=== PATIENT | male | born 1965 | race Caucasian/White ===

== ENCOUNTER 2018-04-26 16:21 | Inpatient (IN) | payer OTHER ==
[~2018-04-26] VITALS: Ht 182.9 cm; Wt 78.0 kg
--- NOTE | 2018-04-26 16:43 | NUR ---
FLAKITOCARLIFelisa ARRIVES WITH [facility]. [facility]. THEY STATE PATIENT IS SUICDIAL AND HOMICIDAL AND HAVE ACCOMPANYING PAPERWORK WITH HOLD FOR PATIENT. HE IS REPETITIVE THAT HE IS CONTAMINATED IN HIS SKIN AND URINE, AND THAT HE HAS CONTAMINATED US ALL. HE STATES OH MY GOD, WHAT HAVE I DONE, CHRISTAL CONTAMINATED US ALL. HE HAS IMPENDING DOOM. IS HEARING VOICES THAT SAY THAT HE IS EVIL, AND HE STATES HE HAS BEEN DRINKING DIRTY WATER. HE IS NOT COMMUNICATIVE WITH DIRECT QUESTIONS. HE IS NOT COOPERATIVE. GOWNED, IN BED, VSS. PATIENT IS REPETITIVE THAT HE IS GOING TO KILL US ALL AND HE IS GOING TO BECAUSE HE IS CONTAMINATED.
--- NOTE | 2018-04-26 17:00 | NUR ---
ITEMS OF HARM REMOVED FROM ROOM. ATTEPMPTING TO GET A BREATHYLZER BUT PATIENT NOT COOPERATIVE. PATIENT WILL NOT GIVE URINE EITHER, HE BELIEVES HIS URINE IS CONTAMINATED. HE IS NOT COOPERATIVE AND A POR HISTORIAN. PATIENT IN BED AND ALL OBJECTS OF HARM REMOVED.
--- NOTE | 2018-04-26 17:09 | NUR ---
MD HERE ASSESSING PATIENT. HE IS IN BED.
--- NOTE | 2018-04-26 17:22 | NUR ---
PATIENT WAS ABLE TO GIVE URINE SAMPLE IN URINAL. IT IS DARK CONCENTRATED SHERI URINE. LABELED IN PATIENTS PRESENCE AND SENT TO LAB. PATIENT IS IN BED WITH SITTER. LAB KIM HIM. HE IS STILL REPETITIVE.
--- NOTE | 2018-04-26 17:25 | NUR ---
BREATHYLZER WAS 0.0. PATIENT BELONGINGS - TWO BAGS - LOCKED IN ER BELONGINGS LOCKER. UNABLE TO GET MEDS, PATIENT IS NOT RESPONDING APPROPRIATELY TO QUESTIONS.
--- NOTE | 2018-04-26 17:30 | NUR ---
ORDERED PATIENT A DIET TRAY.
[2018-04-26 17:38] LABS: BASOPHILS # (AUTO) 0.03 x10^3/uL (0-0.1); BASOPHILS % (AUTO) 1 % (0-1); EOSINOPHILS # (AUTO) 0.06 x10^3/uL (0-0.4); EOSINOPHILS % (AUTO) 1 % (1-7); LYMPHOCYTES # (AUTO) 0.82 x10^3/uL (1-3.4); LYMPHOCYTES % (AUTO) 14 % (22-44); MD NO; MEAN CORPUSCULAR HEMOGLOBIN 30.8 pg (27.5-34.5); MEAN CORPUSCULAR HGB CONC 34.4 g/dL (33.2-36.2); MEAN CORPUSCULAR VOLUME 89.6 fL (81-97); MEAN PLATELET VOLUME 7.7 fL (7.4-10.4); MONOCYTES # (AUTO) 0.37 x10^3/uL (0.2-0.8); MONOCYTES % (AUTO) 6 % (2-9); NEUTROPHILS % (AUTO) 79 % (42-75); PLATELET COUNT 253 x10^3/uL (130-400); RED BLOOD COUNT 4.37 x10^6/uL (4.38-5.82); RED CELL DISTRIBUTION WIDTH 14.4 % (9.4-14.8)
[2018-04-26 17:45] LABS: ALBUMIN 3.3 g/dL (3.4-5.0); ANION GAP 8 mmol/L (5-15); CALCIUM 8.4 mg/dL (8.5-10.1); CHLORIDE 111 mmol/L (98-107)
[2018-04-26 17:46] LABS: SALICYLATE LEVEL < 1.7 mg/dL (2.8-20.0)
[2018-04-26 17:48] LABS: ALANINE AMINOTRANSFERASE 42 U/L (12-78); ALKALINE PHOSPHATASE 66 U/L (45-117); BILIRUBIN,TOTAL 0.7 mg/dL (0.2-1.0); CREATININE 0.97 mg/dL (0.7-1.3); TOTAL PROTEIN 6.1 g/dL (6.4-8.2)
[2018-04-26 17:53] LABS: AMPHETAMINE SCREEN, URINE Negative (Negative); BARBITURATE SCREEN, URINE Negative (Negative); BENZODIAZEPINE SCREEN, URINE Negative (Negative); CANNABINOID SCREEN, URINE Negative (Negative); COCAINE SCREEN, URINE Negative (Negative); METHADONE SCREEN, URINE Negative (Negative); OPIATE SCREEN, URINE Negative (Negative)
[2018-04-26 17:55] LABS: ACETAMINOPHEN < 2 mcg/mL (10-30)
--- NOTE | 2018-04-26 18:06 | NUR ---
PATIENT EATING DINNER TRAY AT THIS TIME, IS QUIET IN BED.
--- NOTE | 2018-04-26 18:24 | NUR ---
PATIENT ATE A SANDWICH AND IS MUCH CALMER. HE IS ANSWERING QUESTIONS MORE APPROPRIATLY.
--- NOTE | 2018-04-26 18:41 | NUR ---
CALLED TO INITIATE TELEPSYCH CONSULT
--- NOTE | 2018-04-26 19:00 | NUR ---
REPORT RECEIVED FROM FERNIE REYNA.
--- NOTE | 2018-04-26 19:25 | NUR ---
PT RESTING AT THIS TIME. PT'S AOX4. RESPS EVEN AND UNLABORED. SITTER MONITORING FROM [facility] FOR SAFETY. ROOM REMAINS SECURE. PT STILL HAS SI/HI AT THIS TIME.
--- NOTE | 2018-04-26 20:28 | NUR ---
PT RESTING AT THIS TIME. PT PROVIDED SOME JUICE. RESPS EVEN AND UNLABORED. SITTER MONITORING FROM [facility] FOR SAFETY. ROOM REMAINS SECURE.
--- NOTE | 2018-04-26 21:12 | NUR ---
REPORT GIVEN TO TELEPSYCH.
--- NOTE | 2018-04-26 21:32 | NUR ---
TELEPSYCH IS IN ROOM NOW. PT REFUSED TO TALK TO TELEPSYCH AT THIS TIME.
--- NOTE | 2018-04-26 22:04 | NUR ---
PT PROVIDED SOME CRACKERS AND MILK AT THIS TIME.
[2018-04-26] MEDS ORDERED: PLEASE ENTER ALLERGIES MC SCH (23:00)
[2018-04-26] MEDS ORDERED: OLANZAPINE 5 MG TABLET PO SCH (23:00)
[2018-04-26] MEDS ORDERED: POTASSIUM CHLORIDE 20 MEQ TAB.ER.PRT PO ONE (23:00)
[2018-04-26] MEDS ORDERED: OLANZAPINE 5 MG TABLET ONE (23:29)
[2018-04-26] MEDS ORDERED: POTASSIUM CHLORIDE 20 MEQ TAB.ER.PRT ONE (23:29)
--- NOTE | 2018-04-26 23:39 | NUR ---
PT MEDICATED PER EMAR. PT TOLERATED WELL. RESPS EVEN AND UNLABORED.
[2018-04-26 23:56] LABS: FREE T4 (FREE THYROXINE) 1.25 ng/dL (0.76-1.46); THYROID STIMULATING HORMONE 1.64 mIU/L (0.358-3.740)
[2018-04-27 00:26] LABS: MICROSCOPIC NOT IND
--- NOTE | 2018-04-27 01:24 | NUR ---
PT SLEEPING IN [facility]. RESPS EVEN AND UNLABORED. SITTER MONITORING FROM [facility] FOR SAFETY. ROOM REMAINS SECURE.
--- NOTE | 2018-04-27 02:31 | NUR ---
[facility] STATES THAT THEY CANT TAKE PT HE IS UNABLE TO VERIFY THAT HE CAN SELF PAY
--- NOTE | 2018-04-27 04:05 | NUR ---
PT SLEEPING IN [facility]. RESPS EVEN AND UNLABORED. SITTER MONITORING FROM [facility] FOR SAFETY. ROOM REMAINS SECURE.
[2018-04-27] MEDS ORDERED: OLANZAPINE 5 MG TABLET PO PRN (04:30)
--- NOTE | 2018-04-27 05:16 | NUR ---
PT SLEEPING IN [facility]. RESPS EVEN AND UNLABORED. SITTER MONITORING FROM [facility] FOR SAFETY. ROOM REMAINS SECURE.
--- NOTE | 2018-04-27 06:34 | NUR ---
VSS WNL. PT'S AOX4. RESPS EVEN AND UNLABORED. SITTER MONITORING FROM [facility] FOR SAFETY. ROOM REMAINS SECURE.
--- NOTE | 2018-04-27 06:50 | NUR ---
REPORT GIVEN TO ANNETTE REYNA.
--- NOTE | 2018-04-27 07:10 | NUR ---
Pt sleeping on [facility]. Pt has unlabored respirations equal bilaterally. NADN. All SI precautions remain in place. No needs expressed. Sitter near doorway in direct line of sight for observaiton.
--- NOTE | 2018-04-27 09:00 | NUR ---
Pt gives verbal consent to speak to his brother Santi Moran regarding his health care. Pt's brother Santi Moran called from phone number [phone]. Santi updated on pt's healthcare and plan of care. All questions answered. Santi states, "He has had mental health issues and hospitalizations before. I don't know of any diagnosis. He was in the , then lived in [place] for years with our uncle, and no one else really ever heard from him. Then he moved up to [place] a few years ago, and he would call our mom at least once a week. No one had heard from him in a week. It is so weird that he is in there, it doesn't sound like him at all. Please let us know when he goes up the the psych unit." Santi informed to please call back regarding transfer to psych unit or additional questions. Santi states understanding.
--- NOTE | 2018-04-27 09:02 | NUR ---
Pt denies current SI or HI. Pt denies pain.
[2018-04-27] MEDS ORDERED: ATEN25TA PO ×2 (09:04→17:26)
--- NOTE | 2018-04-27 09:39 | NUR ---
Alena Benavidez, [place] casemanger and mental health coordinator, ([facility] CELL PHONE NUMBER), ([facility] main number), called regarding update on pt and his plan of care. Alena placed pt on legal hold at [facility] prior to pt arriving to [facility] ED. Alena stated she will come today to see the pt and bring information on his problem list and home medicaitons.
--- NOTE | 2018-04-27 09:43 | NUR ---
Pt resting on [facility]. HU. No needs expressed. Sitter near doorway in direct line of sight for observation.
--- NOTE | 2018-04-27 10:44 | NUR ---
Pt resting on [place]. HU. No needs expressed. Sitter near doorway in direct line of sight for observation.
[2018-04-27 14:12] LABS: BASOPHILS # (AUTO) 0.01 x10^3/uL (0-0.1); BASOPHILS % (AUTO) 0 % (0-1); EOSINOPHILS # (AUTO) 0.07 x10^3/uL (0-0.4); EOSINOPHILS % (AUTO) 2 % (1-7); LYMPHOCYTES # (AUTO) 0.88 x10^3/uL (1-3.4); LYMPHOCYTES % (AUTO) 20 % (22-44); MD NO; MEAN CORPUSCULAR HEMOGLOBIN 30.9 pg (27.5-34.5); MEAN CORPUSCULAR HGB CONC 34.1 g/dL (33.2-36.2); MEAN CORPUSCULAR VOLUME 90.7 fL (81-97); MEAN PLATELET VOLUME 7.4 fL (7.4-10.4); MONOCYTES # (AUTO) 0.29 x10^3/uL (0.2-0.8); MONOCYTES % (AUTO) 7 % (2-9); NEUTROPHILS # (AUTO) 3.24 x10^3/uL (1.8-6.8); NEUTROPHILS % (AUTO) 72 % (42-75); PLATELET COUNT 234 x10^3/uL (130-400); RED BLOOD COUNT 4.35 x10^6/uL (4.38-5.82); RED CELL DISTRIBUTION WIDTH 14.6 % (9.4-14.8)
[2018-04-27 14:18] LABS: ALBUMIN 2.9 g/dL (3.4-5.0); ANION GAP 3 mmol/L (5-15); CALCIUM 8.4 mg/dL (8.5-10.1); CHLORIDE 111 mmol/L (98-107); CREATININE 0.86 mg/dL (0.7-1.3)
--- NOTE | 2018-04-27 14:33 | NUR ---
LATE NOTE ENTRY FOR 1130: Pt resting on gurney watching TV. NADN. No needs expressed. Sitter near doorway in direct line of sight for observation.
--- NOTE | 2018-04-27 14:34 | NUR ---
LATE NOTE ENTRY FOR 1330: Pt resting on gurney watching TV. NADN. No needs expressed. Sitter near doorway in direct line of sight for observation.
--- NOTE | 2018-04-27 14:34 | NUR ---
LATE NOTE ENTRY FOR 1230: Pt recieved meal tray. Pt resting on gurney. NADN. No needs expressed. Sitter near doorway in direct line of sight for observation.
--- NOTE | 2018-04-27 14:35 | NUR ---
Pt resting on [place]. HU. No needs expressed. Sitter near doorway in direct line of sight for observation.
--- NOTE | 2018-04-27 14:35 | NUR ---
Pt's mom called and provided phone number to [phone].
--- NOTE | 2018-04-27 15:24 | NUR ---
Pt resting on gurney. HU. Pt watching TV. Sitter near doorway in direct line of sight for observation. No needs expressed.
--- NOTE | 2018-04-27 16:01 | NUR ---
Offered pt hospital bed in exchange [facility]. Pt polietly declined. Pt remains resting on [facility]. NADN. No needs expressed. Pt awake and sitting quietly in room. Sitter near doorway in direct line of sight for observation.
--- NOTE | 2018-04-27 16:16 | NUR ---
Pt's mom called. Pt gives verbal consent to speak to his mom ([phone]). 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 A few months ago he was seeing this lady over there. We didn't get to meet her yet. They broke up. He said he was fine. I have been so worried about him. None of us could get a hold of him."
[2018-04-27] MEDS ORDERED: FOLI-17 PO (17:26)
[2018-04-27] MEDS ORDERED: CHOL100012 PO (17:26)
[2018-04-27] MEDS ORDERED: SIMV40TA3 PO (17:26)
[2018-04-27] MEDS ORDERED: ATEN50TA41 PO (17:26)
[2018-04-27] MEDS ORDERED: CYAN100014 PO (17:26)
[2018-04-27] MEDS ORDERED: MULT1TAB60 PO (17:26)
[2018-04-27] MEDS ORDERED: ASPI-496 PO (17:26)
--- NOTE | 2018-04-27 17:52 | NUR ---
Pt provided dinner tray. Pt ate 100% of dinner tray. Pt resting on gurney. NADN. No needs expressed. Sitter near doorway in direct line of sight for observation.
--- NOTE | 2018-04-27 18:32 | NUR ---
Pt resting on [place]. HU. No needs expressed. Sitter near doorway in direct line of sight for observation.
--- NOTE | 2018-04-27 19:13 | NUR ---
BEDSIDE REPORT FROM ANNETTE REYNA. THIS RN TO ASSUME CARE OF PT. ROLLER DOORS IN PLACE. SITTER IN HALLWAY. NO IMMEDIATE NEEDS FROM PT. PT STILL DECLINING HOSPITAL BED AT THIS TIME.
--- NOTE | 2018-04-27 20:17 | NUR ---
ROLLER DOORS IN PLACE. SITTER IN HALLWAY. NO IMMEDIATE NEEDS FROM PT.
--- NOTE | 2018-04-27 22:17 | NUR ---
AMBULATE TO RR W/ STEADY GAIT. NO IMMEDIATE NEEDS FROM PT.
--- NOTE | 2018-04-27 22:58 | NUR ---
ROLLER DOORS IN PLACE. SITTER IN HALLWAY. NO IMMEDIATE NEEDS FROM PT.
--- NOTE | 2018-04-28 01:14 | NUR ---
ROLLER DOORS IN PLACE. SITTER IN HALLWAY. NO IMMEDIATE NEEDS FROM PT.
--- NOTE | 2018-04-28 01:43 | NUR ---
REPORT TO ISABELL REYNA.
--- NOTE | 2018-04-28 02:16 | NUR ---
REPORT FROM ALONDRA REYNA. PT SLEEPING WITH N NEEDS AT THIS TIME. SITTERIN VIEW OF PT.
--- NOTE | 2018-04-28 03:15 | NUR ---
PT AMBULATED TO BATHROOM. PT HAS NO NEEDS AT THIS TIME. VSS. SITTER IN VIEW OF PT.
--- NOTE | 2018-04-28 04:30 | NUR ---
PT SLEEPING. PT HAS NO NEEDS AT THIS TIME. PT IN NAD. EVEN RISE AND FALL OF CHEST OBSERVED. SITTER IN VIEW OF PT.
--- NOTE | 2018-04-28 05:27 | NUR ---
PT SLEEPING. PT HAS NO NEEDS AT THIS TIME. PT IN NAD. EVEN RISE AND FALL OF CHEST OBSERVED. SITTER IN VIEW OF PT.
--- NOTE | 2018-04-28 06:50 | NUR ---
REPORT TO DENY REYNA
--- NOTE | 2018-04-28 06:56 | NUR ---
PT IS RESTING IN BED WITH EYES CLOSED, RESPIRATIONS EQUAL AND NON LABORED. NAD. SITTER OUTSIDE THE ROOM.
--- NOTE | 2018-04-28 06:56 | NUR ---
REPORT FROM ISABELL REYNA.
--- NOTE | 2018-04-28 08:22 | NUR ---
PT GIVEN BREAKFAST TO EAT. PT IS SITTING UP IN BED EATING. SITTER OUTSIDE THE ROOM.
--- NOTE | 2018-04-28 09:15 | NUR ---
PT IS RESTING IN BED, EATING BREAKFAST. RESPIRATIONS EQUAL AND NON LABORED. NAD. SITTER OUTSIDE THE ROOM.
--- NOTE | 2018-04-28 10:45 | NUR ---
PT IS RESTING IN BED, RESPIRATIONS EQUAL AND NON LABORED. NAD. SITTER OUTSIDE THE ROOM.
--- NOTE | 2018-04-28 11:58 | NUR ---
PT IS RESTING IN BED WITH EYES CLOSED, RESPIRATIONS EQUAL AND NON LABORED. NAD. SITTER OUTSIDE THE ROOM.
--- NOTE | 2018-04-28 12:13 | NUR ---
PT GIVEN LUNCH TO EAT. PT IS APPRECIATIVE.
--- NOTE | 2018-04-28 12:37 | NUR ---
REPORT RECEIVED FROM AXEL BARCLAY. PT RESTING ON HOSPITAL BED, PT AWAKE AND ALERT, RESPS EVEN AND UNLABORED. ROOM SECURE. SITTER MONITORING FROM [facility] FOR SAFETY.
--- NOTE | 2018-04-28 12:55 | NUR ---
REPORT GIVEN TO 2N AXEL WONG. PT AWAITING TRANSPORT AT THIS TIME.
--- NOTE | 2018-04-28 12:58 | NUR ---
PT INFORMED THAT HE IS GOING UPSTAIRS, PT A&OX4, RESPS EVEN AND UNLABORED. PT DENIES ANY PAIN. PT HAS NO COMPLAINT AT THIS TIME.
--- NOTE | 2018-04-28 13:32 | NUR ---
PT TRANSPORTED TO ROOM 264 WITH TECH AND ALL BELONGINGS. HU AT TRANSPORT.
[2018-04-28 13:38] VITALS: BP 134/86
[2018-04-28 13:55] VITALS: BP 134/86
== END 2018-04-28 15:15 | DRG 640 ==
LOC: ED 18:15 → EDIP 04-27 00:45 → OBSVTOIN 04-27 03:57 → 2N 04-28 13:35
PROVIDERS: ADMIT Family Medicine; ATTEND Family Medicine
DX: E87.6 Hypokalemia (principal); E43 Unspecified severe protein-calorie malnutrition; F23 Brief psychotic disorder; R45.851 Suicidal ideations; E78.5 Hyperlipidemia, unspecified; I10 Essential (primary) hypertension; R45.850 Homicidal ideations; Z68.23 Body mass index [BMI] 23.0-23.9, adult
CPT/HCPCS: 36415; 80048; 80053; 80307; 80329; 81003; 82040; 84439; 84443; 85025; 99285; G0378; G0480

== ENCOUNTER 2018-04-28 14:50 | Inpatient (IN) | payer OTHER ==
[~2018-04-28] VITALS: Ht 188 cm; Wt 53.3 kg
[~2018-04-28 14:50] MED LIST: ASPI-496 PO; ATEN25TA PO; ATEN50TA41 PO; CHOL100012 PO; CYAN100014 PO; FOLI-17 PO; MULT1TAB60 PO; SIMV40TA3 PO
[2018-04-28] MEDS ORDERED: POLYETHYLENE GLYCOL 17 GM PACKET PO PRN (15:30)
[2018-04-28] MEDS ORDERED: ONDANSETRON ODT 4 MG PO PRN (15:30)
[2018-04-28] MEDS ORDERED: ACETAMINOPHEN 325 MG TABLET PO PRN (15:30)
[2018-04-28] MEDS ORDERED: DOCUSATE 100 MG CAPSULE PO PRN ×2 (15:30→16:00)
[2018-04-28] MEDS ORDERED: BISACODYL 10 MG SUPP PR PRN (15:30)
[2018-04-28 15:47] VITALS: BP 111/77
[2018-04-28] MEDS ORDERED: QUETIAPINE 25MG TABLET PO PRN (16:00)
[2018-04-28] MEDS ORDERED: ZIPRASIDONE 20MG CAPSULE PO PRN (16:00)
[2018-04-28] MEDS ORDERED: PLEASE ENTER HEIGHT AND WEIGHT MC SCH (16:00)
[2018-04-28] MEDS ORDERED: BENZTROPINE 1 MG TABLET PO PRN ×2 (16:00)
[2018-04-28] MEDS ORDERED: FLU VAC QS18-19(4YR UP)CEL/PF 0.5ML IM-VACC ONE (16:30)
[2018-04-28] MEDS ORDERED: OLANZAPINE 5 MG TABLET PO PRN (17:00)
[2018-04-28 20:06] VITALS: BP 103/71
[2018-04-28] MEDS: CHOLECALCIFEROL 1,000 UNIT TABLET PO SCH (20:46)
[2018-04-29 06:08] LABS: HCT (SEDRATE) 40.8 % (39.2-51.8)
[2018-04-29 06:38] LABS: CHOL/HDL RATIO 2.8; LDL/HDL RATIO 1.2 (0.5-3.0); T4 (THYROXINE) 6.5 mcg/dL (4.5-12.1); THYROID STIMULATING HORMONE 1.23 mIU/L (0.358-3.740)
[2018-04-29 07:14] VITALS: BP 123/80
[2018-04-29] MEDS: SENNA/DOCUSATE TABLET PO SCH ×2 (09:00→09:21)
[2018-04-29] MEDS: CHOLECALCIFEROL 1,000 UNIT TABLET PO SCH ×2 (09:20→21:14)
[2018-04-29] MEDS: FLUOXETINE 10 MG CAP PO SCH (09:20)
[2018-04-29] MEDS: CYANOCOBALAMIN 1,000 MCG TABLET PO SCH (09:21)
[2018-04-29] MEDS: MULTIVITAMIN 1 TABLET PO SCH (09:21)
[2018-04-29] MEDS: ASPIRIN 81 MG TABLET EC PO SCH (09:21)
[2018-04-29] MEDS ORDERED: FOLIC ACID 1 MG TABLET ONE (09:22)
[2018-04-29 09:26] LABS: ALBUMIN 2.8 g/dL (3.4-5.0); ANION GAP 5 mmol/L (5-15); CALCIUM 8.5 mg/dL (8.5-10.1); CHLORIDE 111 mmol/L (98-107)
[2018-04-29 09:31] LABS: ALANINE AMINOTRANSFERASE 28 U/L (12-78); ALKALINE PHOSPHATASE 56 U/L (45-117); BILIRUBIN,TOTAL 0.4 mg/dL (0.2-1.0); CREATININE 1.01 mg/dL (0.7-1.3); TOTAL PROTEIN 5.7 g/dL (6.4-8.2)
[2018-04-29 19:52] VITALS: BP 111/76
[2018-04-30 07:20] VITALS: BP 126/79
[2018-04-30] MEDS: SENNA/DOCUSATE TABLET PO SCH (08:10)
[2018-04-30] MEDS: MULTIVITAMIN 1 TABLET PO SCH (08:10)
[2018-04-30] MEDS: CYANOCOBALAMIN 1,000 MCG TABLET PO SCH (08:10)
[2018-04-30] MEDS: FOLIC ACID 1 MG TABLET PO SCH (08:10)
[2018-04-30] MEDS: FLUOXETINE 10 MG CAP PO SCH (08:10)
[2018-04-30] MEDS: ASPIRIN 81 MG TABLET EC PO SCH (08:10)
[2018-04-30] MEDS: CHOLECALCIFEROL 1,000 UNIT TABLET PO SCH ×2 (08:10→21:15)
[2018-04-30 19:53] VITALS: BP 139/91
[2018-04-30] MEDS: LORazepam 1MG TABLET PO PRN (21:14)
[2018-05-01 07:41] VITALS: BP 106/77
[2018-05-01] MEDS: CYANOCOBALAMIN 1,000 MCG TABLET PO SCH (08:35)
[2018-05-01] MEDS: FLUOXETINE 10 MG CAP PO SCH (08:35)
[2018-05-01] MEDS: ASPIRIN 81 MG TABLET EC PO SCH (08:35)
[2018-05-01] MEDS: MULTIVITAMIN 1 TABLET PO SCH (08:36)
[2018-05-01] MEDS: CHOLECALCIFEROL 1,000 UNIT TABLET PO SCH ×2 (08:36→21:04)
[2018-05-01] MEDS: SENNA/DOCUSATE TABLET PO SCH (08:36)
[2018-05-01 19:59] VITALS: BP 120/83
[2018-05-02 07:21] VITALS: BP 115/76
[2018-05-02] MEDS: CYANOCOBALAMIN 1,000 MCG TABLET PO SCH (08:54)
[2018-05-02] MEDS: ASPIRIN 81 MG TABLET EC PO SCH (08:54)
[2018-05-02] MEDS: FOLIC ACID 1 MG TABLET PO SCH (08:54)
[2018-05-02] MEDS: MULTIVITAMIN 1 TABLET PO SCH (08:54)
[2018-05-02] MEDS: SENNA/DOCUSATE TABLET PO SCH (08:54)
[2018-05-02] MEDS: CHOLECALCIFEROL 1,000 UNIT TABLET PO SCH ×2 (08:55→21:44)
[2018-05-02] MEDS: FLUOXETINE 10 MG CAP PO SCH (08:55)
[2018-05-02 19:59] VITALS: BP 113/78
[2018-05-02] MEDS: LORazepam 1MG TABLET PO PRN (21:48)
[2018-05-03 07:34] VITALS: BP 129/86
[2018-05-03] MEDS: ASPIRIN 81 MG TABLET EC PO SCH (09:10)
[2018-05-03] MEDS: MULTIVITAMIN 1 TABLET PO SCH (09:10)
[2018-05-03] MEDS: CYANOCOBALAMIN 1,000 MCG TABLET PO SCH (09:10)
[2018-05-03] MEDS: LORazepam 1MG TABLET PO PRN ×2 (09:10→20:57)
[2018-05-03] MEDS: CHOLECALCIFEROL 1,000 UNIT TABLET PO SCH ×2 (09:10→20:58)
[2018-05-03] MEDS: SENNA/DOCUSATE TABLET PO SCH (09:11)
[2018-05-03] MEDS: FLUOXETINE 10 MG CAP PO SCH (09:11)
[2018-05-03 20:00] VITALS: BP 107/74
[2018-05-04 07:56] VITALS: BP 118/78
[2018-05-04] MEDS: MULTIVITAMIN 1 TABLET PO SCH (08:08)
[2018-05-04] MEDS: FOLIC ACID 1 MG TABLET PO SCH (08:08)
[2018-05-04] MEDS: SENNA/DOCUSATE TABLET PO SCH (08:08)
[2018-05-04] MEDS: CYANOCOBALAMIN 1,000 MCG TABLET PO SCH (08:08)
[2018-05-04] MEDS: FLUOXETINE 10 MG CAP PO SCH (08:08)
[2018-05-04] MEDS: CHOLECALCIFEROL 1,000 UNIT TABLET PO SCH ×2 (08:08→20:57)
[2018-05-04] MEDS: ASPIRIN 81 MG TABLET EC PO SCH (08:08)
[2018-05-04 20:25] VITALS: BP 116/83
[2018-05-04] MEDS: OLANZAPINE 5 MG TABLET PO SCH (20:57)
[2018-05-05 07:34] VITALS: BP 108/72
[2018-05-05] MEDS: CHOLECALCIFEROL 1,000 UNIT TABLET PO SCH ×2 (08:15→20:33)
[2018-05-05] MEDS: MULTIVITAMIN 1 TABLET PO SCH (08:15)
[2018-05-05] MEDS: ASPIRIN 81 MG TABLET EC PO SCH (08:15)
[2018-05-05] MEDS: SENNA/DOCUSATE TABLET PO SCH (08:15)
[2018-05-05] MEDS: CYANOCOBALAMIN 1,000 MCG TABLET PO SCH (08:15)
[2018-05-05] MEDS: FLUOXETINE 10 MG CAP PO SCH (08:16)
[2018-05-05 19:52] VITALS: BP 120/81
[2018-05-05] MEDS: OLANZAPINE 5 MG TABLET PO SCH (20:34)
[2018-05-06 07:49] VITALS: BP 114/73
[2018-05-06 07:50] VITALS: BP 114/73
[2018-05-06] MEDS: FLUOXETINE 10 MG CAP PO SCH (08:42)
[2018-05-06] MEDS: MULTIVITAMIN 1 TABLET PO SCH (08:42)
[2018-05-06] MEDS: ASPIRIN 81 MG TABLET EC PO SCH (08:42)
[2018-05-06] MEDS: FOLIC ACID 1 MG TABLET PO SCH (08:42)
[2018-05-06] MEDS: CHOLECALCIFEROL 1,000 UNIT TABLET PO SCH ×2 (08:42→19:49)
[2018-05-06] MEDS: CYANOCOBALAMIN 1,000 MCG TABLET PO SCH (08:42)
[2018-05-06] MEDS: SENNA/DOCUSATE TABLET PO SCH (08:42)
[2018-05-06] MEDS: OLANZAPINE 5 MG TABLET PO SCH (19:49)
[2018-05-06 20:07] VITALS: BP 97/67
[2018-05-07 07:21] VITALS: BP 116/75
[2018-05-07] MEDS: FLUOXETINE 10 MG CAP PO SCH (09:13)
[2018-05-07] MEDS: CYANOCOBALAMIN 1,000 MCG TABLET PO SCH (09:14)
[2018-05-07] MEDS: CHOLECALCIFEROL 1,000 UNIT TABLET PO SCH ×2 (09:14→20:05)
[2018-05-07] MEDS: ASPIRIN 81 MG TABLET EC PO SCH (09:14)
[2018-05-07] MEDS: MULTIVITAMIN 1 TABLET PO SCH (09:14)
[2018-05-07] MEDS: SENNA/DOCUSATE TABLET PO SCH (09:14)
[2018-05-07 19:52] VITALS: BP 120/86
[2018-05-07] MEDS: OLANZAPINE 5 MG TABLET PO SCH (20:04)
[2018-05-07] MEDS: LORazepam 1MG TABLET PO PRN (20:11)
[2018-05-08 07:50] VITALS: BP 119/79
[2018-05-08] MEDS: MULTIVITAMIN 1 TABLET PO SCH (09:09)
[2018-05-08] MEDS: FOLIC ACID 1 MG TABLET PO SCH (09:09)
[2018-05-08] MEDS: ASPIRIN 81 MG TABLET EC PO SCH (09:09)
[2018-05-08] MEDS: SENNA/DOCUSATE TABLET PO SCH (09:10)
[2018-05-08] MEDS: FLUOXETINE 10 MG CAP PO SCH (09:10)
[2018-05-08] MEDS: CHOLECALCIFEROL 1,000 UNIT TABLET PO SCH ×2 (09:11→20:36)
[2018-05-08] MEDS: CYANOCOBALAMIN 1,000 MCG TABLET PO SCH (09:12)
[2018-05-08 19:32] VITALS: BP 113/75
[2018-05-08] MEDS: OLANZAPINE 5 MG TABLET PO SCH (20:36)
[2018-05-09 07:17] VITALS: BP 124/80
[2018-05-09] MEDS: FLUOXETINE 10 MG CAP PO SCH (08:23)
[2018-05-09] MEDS: CHOLECALCIFEROL 1,000 UNIT TABLET PO SCH (08:23)
[2018-05-09] MEDS: ASPIRIN 81 MG TABLET EC PO SCH (08:23)
[2018-05-09] MEDS: CYANOCOBALAMIN 1,000 MCG TABLET PO SCH (08:24)
[2018-05-09] MEDS: MULTIVITAMIN 1 TABLET PO SCH (08:24)
[2018-05-09] MEDS: SENNA/DOCUSATE TABLET PO SCH (08:24)
[2018-05-09] MEDS: LORazepam 1MG TABLET PO PRN (11:49)
== END 2018-05-09 12:50 | disposition home or self-care (01) | DRG 885 ==
LOC: OBSVTOIN 15:21 → 3E 15:21 → INTOOBSV 15:21 → 3E 04-29 07:28
PROVIDERS: ADMIT Psychiatry & Neurology Psychosomatic Medicine; ATTEND Psychiatry & Neurology Psychosomatic Medicine
DX: F32.2 Major depressive disorder, single episode, severe without psychotic features (principal); R45.851 Suicidal ideations; E46 Unspecified protein-calorie malnutrition; Z68.1 Body mass index [BMI] 19.9 or less, adult; F29 Unspecified psychosis not due to a substance or known physiological condition; I10 Essential (primary) hypertension; E78.5 Hyperlipidemia, unspecified; E87.6 Hypokalemia; Z91.14 Patient's other noncompliance with medication regimen; Z86.711 Personal history of pulmonary embolism
CPT/HCPCS: 36415; 71045; 80053; 80061; 82140; 82607; 84436; 84443; 85651; 86592; 90656; 93005; 92522-GN